=== PATIENT | female | born 1990 | race African-American/Black ===

== ENCOUNTER 2019-11-11 22:29 | Emergency (ER) | payer OTHER ==
[~2019-11-11] VITALS: Ht 167.6 cm; Wt 49.9 kg
[2019-11-12 00:59] LABS: ABSOLUTE NEUTROPHILS 10.2 thou/uL (1.4-8.2); BASOPHILS 0.8 % (0.0-2.0); EOSINOPHILS 0.5 % (0.0-3.0); HEMATOCRIT 36.5 % (37.0-47.0); HEMOGLOBIN 11.8 gm/dL (12.0-15.0); LYMPHOCYTES 18.3 % (24.0-44.0); MCH 26.7 pg (26.0-34.0); MCHC 32.4 g/dL (28.0-37.0); MCV 82.3 fL (80.0-100.0); PLATELET COUNT 190 thou/uL (150-400); POLYS 73.4 % (36.0-66.0); RBC 4.43 mil/uL (4.20-5.00); RDW 16.1 % (10.5-14.5); WBC 13.9 thou/uL (4.0-11.0)
[2019-11-12 01:06] LABS: CALCIUM 9.6 mg/dL (8.5-10.1); CREATININE 0.7 mg/dL (0.6-1.0); POTASSIUM 3.7 mmol/L (3.5-5.1)
[2019-11-12 01:12] LABS: ALBUMIN 3.5 g/dL (3.4-5.0); TOTAL BILIRUBIN 0.3 mg/dL (<0.1-1.0); TOTAL PROTEIN 7.3 g/dL (6.4-8.2)
[2019-11-12 01:51] LABS: URINE BILIRUBIN NEGATIVE (Negative); URINE BLOOD 1+ (Negative); URINE CLARITY CLOUDY; URINE COLOR YELLOW; URINE GLUCOSE-RANDOM* NEGATIVE (Negative); URINE KETONES NEGATIVE (Negative); URINE NITRITE-REFLEX NEGATIVE (Negative); URINE PROTEIN (DIPSTICK) TRACE (Negative); URINE SPECIFIC GRAVITY 1.015 (1.005-1.035); URINE UROBILINOGEN 0.2 E.U./dl (0.2-1.0)
[2019-11-12 01:52] LABS: URINE LEUKOCYTES-REFLEX 3+ (Negative)
[2019-11-12 02:18] LABS: SQUAMOUS 0-3 Few /LPF (0-3); WBC CLUMPS Few (None Seen)
[2019-11-12 02:19] LABS: CASTS None Seen /LPF (None Seen); CRYSTALS None Seen /LPF (None Seen); MUCUS 0-3 Light strn/LPF (None Seen); URINE RBC 3-10 Few /HPF (0-2); URINE WBC-REFLEX >25 Many /HPF (0-5)
[2019-11-12] MEDS ORDERED: REGLAN 10 MG TA10 MG PO (03:56)
[2019-11-12] MEDS ORDERED: SENNA-DOCUSATE1 EAC1 PO (03:56)
[2019-11-12] MEDS ORDERED: NORCO 5-325 TA1 EAC1 PO (03:56)
[2019-11-12] MEDS ORDERED: MACROBID 100 M100 M1 PO (03:56)
[2019-11-12 04:18] VITALS: BP 124/62
== END 2019-11-12 04:20 | disposition home or self-care (01) ==
LOC: ER 22:29
PROVIDERS: Emergency Medicine
DX: O23.01 Infections of kidney in pregnancy, first trimester (principal); Z3A.01 Less than 8 weeks gestation of pregnancy